=== PATIENT | male | born 1995 | race Caucasian/White ===

== ENCOUNTER 2024-01-03 18:45 | Emergency (ER) | payer OTHER ==
[~2024-01-03] VITALS: Ht 185.4 cm; Wt 97.5 kg
[2024-01-03] MEDS ORDERED: ACETAMINOPHEN ES 500 MG TABLET ONE (20:41)
[2024-01-03] MEDS ORDERED: IBUPROFEN 400 MG TABLET ONE (20:41)
[2024-01-03] MEDS: IBUPROFEN 400 MG TABLET PO ONE (20:44)
[2024-01-03] MEDS: ACETAMINOPHEN ES 500 MG TABLET PO ONE (20:44)
[2024-01-03] MEDS ORDERED: CEPHALEXIN MONOHYDRATE 500 MG CAPSULE PO ONE (21:45)
[2024-01-03] MEDS: CEPHALEXIN MONOHYDRATE 500 MG CAPSULE PO ONE (21:48)
[2024-01-03] MEDS ORDERED: LIDOCAINE HCL/MPF 1% 30 ML VIAL IJ ONE (21:53)
[2024-01-03] MEDS: LIDOCAINE HCL/PF 1% 30 ML VIAL TP ONE (21:55)
[2024-01-03] MEDS ORDERED: CEPH500T PO (22:46)
[2024-01-03] MEDS ORDERED: OXYC5CAP18 PO (22:46)
[2024-01-03 23:21] VITALS: BP 118/76; TEMP 98.4; O2SAT 98
== END 2024-01-03 23:21 | disposition home or self-care (01) ==
LOC: ER 18:56
DX: S92.422A Displaced fracture of distal phalanx of left great toe, initial encounter for closed fracture (principal); J45.909 Unspecified asthma, uncomplicated; X58.XXXA Exposure to other specified factors, initial encounter; Y93.89 Activity, other specified; Y92.39 Other specified sports and athletic area as the place of occurrence of the external cause; Y99.8 Other external cause status
CPT/HCPCS: 99285; 11760; 73630; 73660; J3490 ×2; A6403

== ENCOUNTER 2025-02-28 19:42 | Emergency (ER) | payer OTHER ==
[~2025-02-28] VITALS: Ht 185.4 cm; Wt 102.1 kg
[~2025-02-28 19:42] MED LIST: CEPH500T PO; OXYC5CAP18 PO
[2025-02-28 21:58] VITALS: TEMP 98.7
[2025-02-28 22:15] VITALS: BP 130/88; O2SAT 97
[2025-02-28] MEDS ORDERED: CEFAZOLIN 2 GM in IV D5W 100 ML IV ONE (23:30)
[2025-02-28] MEDS ORDERED: LIDOCAINE 1% INJ 50 ML MDV IJ ONE (23:46)
[2025-03-01] MEDS ORDERED: CEFTRIAXONE 1GM BAG (ER ONLY) 50 ML IV ONE (00:04)
[2025-03-01] MEDS ORDERED: HYDROCODONE/APAP 5/325MG TABLET ONE (00:05)
[2025-03-01] MEDS ORDERED: KETOROLAC TROMETHAMINE INJ 30 MG/ML VIAL ONE (00:06)
[2025-03-01] MEDS ORDERED: CEFTRIAXONE 1 G VIAL ONE (00:06)
[2025-03-01] MEDS: HYDROCODONE/APAP 5/325MG TABLET PO ONE (00:14)
[2025-03-01] MEDS: LIDOCAINE 1% INJ 50 ML MDV IJ ONE (00:14)
[2025-03-01] MEDS: KETOROLAC TROMETHAMINE INJ 30 MG/ML VIAL IV ONE (00:14)
[2025-03-01] MEDS: CEFTRIAXONE 2 G in IV D5W 50 ML IV ONE (00:14)
[2025-03-01] MEDS ORDERED: HYDR-4209 PO (01:06)
[2025-03-01] MEDS ORDERED: CEPH750C9 PO (01:06)
== END 2025-03-01 01:27 | disposition home or self-care (01) ==
LOC: ER 19:51
DX: S92.402A Displaced unspecified fracture of left great toe, initial encounter for closed fracture (principal); S91.212A Laceration without foreign body of left great toe with damage to nail, initial encounter; J45.909 Unspecified asthma, uncomplicated; Z60.2 Problems related to living alone; X58.XXXA Exposure to other specified factors, initial encounter; Y93.89 Activity, other specified; Y92.89 Other specified places as the place of occurrence of the external cause; Y99.8 Other external cause status
CPT/HCPCS: 11730; 12001; 73630; 96365; 96375; 99284; J0690; J0696; J1885; J3490; J7060